=== PATIENT | female | born 1960 ===

== ENCOUNTER 2017-11-12 09:07 | Day surgery (SDC) | payer OTHER ==
[2017-10-31 14:27] VITALS: BMI 26.5
[2017-11-12] MEDS ORDERED: Sodium Chloride 0.9% 20 ML IV ONE (09:46)
[2017-11-12] MEDS ORDERED: Triamcinolone Acetonide 40 mg/mL Inj ONE (09:46)
[2017-11-12] MEDS ORDERED: Lidocaine 2% PF (10 ml) Amp ONE ×2 (09:46→10:37)
[2017-11-12] MEDS ORDERED: Iohexol 300 10 ML ONE (09:47)
[2017-11-12] MEDS ORDERED: Lactated Ringer's 1,000 ML IV ONE ×2 (09:59→10:55)
[2017-11-12] MEDS ORDERED: MethylPREDNISolone Depo 40 mg/ml Inj ONE (10:07)
[2017-11-12] MEDS ORDERED: Midazolam 2 MG/2 ML VIAL ONE (10:25)
[2017-11-12] MEDS ORDERED: Propofol 10 mg/ml Inj (20 ML) ONE (10:37)
[2017-11-12] MEDS ORDERED: Iohexol 240 (10 ml) IVP ONE (10:41)
[2017-11-12] MEDS ORDERED: Sodium Chloride 0.9% Inj (10mL) IV ONE (10:41)
[2017-11-12] MEDS ORDERED: MethylPREDNISolone Depo 40 mg/ml Inj IM ONE (10:41)
[2017-11-12] MEDS ORDERED: Lidocaine 2% PF (10 ml) Amp INJ ONE (10:41)
[2017-11-12 10:59] VITALS: O2SAT 100
[2017-11-12 14:21] VITALS: BP 112/72; PULSE 68; RESP 18; TEMP 97.6
--- NOTE | 2017-11-13 16:52 | RAD ---
Date of service: 11/12/2017 PROCEDURE: Fluoroscopy up to 1 hr. HISTORY: PAIN MANAGEMENT COMPARISON: None TECHNIQUE: Standard protocol for this study/examination. FINDINGS: Total fluoroscopic time (continuous mode) utilized during the procedure 60.7 (seconds). Total exam DLP: 20.16 (mGy). IMPRESSION: Less than 1 hr fluoroscopic assistance provided during performance of the procedure.
== END 2017-11-12 12:45 | disposition home or self-care (01) ==
LOC: H.OPSURG 09:07
PROVIDERS: ATTEND Anesthesiology Pain Medicine
DX: M51.16 Intervertebral disc disorders with radiculopathy, lumbar region (principal); M19.90 Unspecified osteoarthritis, unspecified site
CPT/HCPCS: 64483; 64484; J1030; J2250; J2704; J3010; J7120; Q9966; Q9967